=== PATIENT | female | born 1995 | race American Indian/Alaskan Native ===

== ENCOUNTER 2017-09-12 23:33 | Emergency (ER) | payer SELFPAY ==
[2017-09-13] MEDS ORDERED: DECADRON ONE (00:04)
[2017-09-13] MEDS ORDERED: BENADRYL PO ONE ×2 (00:04→00:15)
[2017-09-13] MEDS ORDERED: DECADRON IM ONE (00:16)
--- NOTE | 2017-09-13 05:12 | Emergency Department Report ---
HPI - General Chief Complaint: Allergic Reaction Time Seen by Provider: 09/13/17 05:08 - HPI HPI: 21-year-old -[place] female that is a [employer] for work or were comes in reporting allergic reaction. Patient reports that she is allergic to eggs and had a tuna cyst and was while at [facility] and aware that it had contain eggs. Patient started to have itchiness in her throat and trouble breathing. Patient denies any difficulty breathing but stated in triage that she felt like something was stuck in her throat. Patient has no other concerns at this time. She does have a past medical history of depression and anxiety. ED Past Medical Hx - Past Medical History Hx GERD: Yes Hx Asthma: Yes Additional medical history: Eczema, Left Eye Blephritis - Surgical History Past Surgical History?: No - Social History Smoking Status: Never Smoker Substance Use Type: None - Medications Home Medications: Home Medications Medication Instructions Recorded Confirmed Last Taken Type EPINEPHrine [Epipen 2-Kirill] 0.3 mg IJ ONCE #1 auto.injct 09/13/17 Unknown Rx ED Review of Systems ROS: Stated complaint: ALLERGIC REACTION Other details as noted in HPI ENT: throat pain Respiratory: denies: cough, shortness of breath, SOB with exertion Cardiovascular: denies: chest pain, palpitations Physical Exam - Physical Exam Vital Signs: Vital Signs 09/12/17 23:43 Temperature 97.9 F Pulse Rate 79 Respiratory 16 Rate Blood Pressure 132/85 O2 Sat by Pulse 100 Oximetry Physical Exam: GENERAL APPEARANCE: Well developed, well nourished, in no acute distress. SKIN: Inspection of the skin reveals no rashes, ulcerations or petechiae. HEENT: The sclerae were anicteric and conjunctivae were pink and moist. Extraocular movements were intact and pupils were equal, round, and reactive to light External inspection of the ears and nose showed no scars, lesions, or masses. Lips, teeth, and gums showed normal mucosa. The oral mucosa, hard and soft palate, tongue and posterior pharynx were normal. NECK: Supple and symmetric. There was no thyroid enlargement, and no tenderness , or masses were felt. CHEST: Normal AP diameter and normal contour without any kyphoscoliosis. LUNGS: Auscultation of the lungs revealed normal breath sounds without any other adventitious sounds or rubs. NEUROLOGIC: Alert and oriented x 3. Normal affect. Gait was normal. ED Course Vital Signs 09/12/17 23:43 Temperature 97.9 F Pulse Rate 79 Respiratory 16 Rate Blood Pressure 132/85 O2 Sat by Pulse 100 Oximetry - Reevaluation(s) Reevaluation #1: 09/13/17 05:09 Patient reports that since she's had her steroid and her Benadryl she feels much better now. ED Medical Decision Making - Medical Decision Making Patient has been evaluated by this provider in fast track. Patient was given dexamethasone and Benadryl in triage. Patient reports that she feels much better. Discussed the patient to try to avoid eggs as much as possible. Will discharge patient with an EpiPen. Critical care attestation.: If time is entered above; I have spent that time in minutes in the direct care of this critically ill patient, excluding procedure time. ED Disposition Clinical Impression: Allergic reaction to food Qualifiers: Encounter type: initial encounter Qualified Code(s): T78.1XXA - Other adverse food reactions, not elsewhere classified, initial encounter Disposition: DC/TX-70 ANOTHER TYPE HLTHCARE Is pt being admited?: No Does the pt Need Aspirin: No Condition: Stable Instructions: Food Allergy (ED), Anaphylaxis (ED) Additional Instructions: Please avoid eggs shellfish and latex. Use EpiPen if they have another allergic reaction with trouble breathing or feeling of throat was swelling up. Prescriptions: EPINEPHrine [Epipen 2-Kirill] 0.3 mg IJ ONCE #1 auto.injct Referrals: PRIMARY CARE, [Primary Care Provider] - 3-5 Days Forms: AMA Form
[2017-09-13 05:52] VITALS: BP 118/85
== END 2017-09-13 05:51 | disposition other institution (70) ==
LOC: ED 23:33
DX: T78.1XXA Other adverse food reactions, not elsewhere classified, initial encounter (principal); J45.909 Unspecified asthma, uncomplicated; K21.9 Gastro-esophageal reflux disease without esophagitis; Z91.013 Allergy to seafood; Z91.012 Allergy to eggs; Z88.8 Allergy status to other drugs, medicaments and biological substances; X58.XXXA Exposure to other specified factors, initial encounter
CPT/HCPCS: 96372; 99283; J1100